=== PATIENT | male | born 1950 ===

== ENCOUNTER 2019-08-24 08:18 | Outpatient (CLI) | payer BC ==
--- NOTE | 2019-08-24 09:21 | MRI ---
EXAM: MRI Lumbar Spine WO Con PROVIDED CLINICAL HISTORY: Lumbar radiculopathy COMPARISON: None FINDINGS: 5 lumbar vertebral bodies are assumed. Lumbar alignment appears normal. Vertebral body heights appear preserved. No focal concerning regional marrow signal abnormality is evident. The conus medullaris is normal in signal and terminates at an appropriate level. T2 hyperintense focus involving the super ior pole of the right kidney statistically relates to cyst but is incompletely characterized. 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 At L1-2, there is bilateral facet arthritis without significant central canal or foraminal narrowing apparent. At L2-3, there is no significant central canal or foraminal narrowing apparent. At L3-4, there is a broad-based disc bulge and bilateral facet arthritis. There is an eccentric appea sami to the disc bulge in the right foraminal region with mild foraminal and post foraminal narrowing on this basis. No significant central canal or left foraminal narrowing apparent. At L4-5, there is a broad-based disc bulge with a superimposed central and subarticular left sided di sc herniation. There is severe central canal stenosis. There is no significant foraminal narrowing. At L5-S1, there is bilateral facet arthritis and a broad-based disc bulge without significant central canal or foraminal narrowing apparent. IMPRESSION: Disc herniation at L4-5 producing severe central canal stenosis. Additional degenerative change as ab ove.
== END 2019-08-24 08:19 | disposition home or self-care (01) ==
LOC: BICMRI 08:18
PROVIDERS: ATTEND Internal Medicine
DX: M47.26 Other spondylosis with radiculopathy, lumbar region (principal); M54.5 Low back pain; M51.16 Intervertebral disc disorders with radiculopathy, lumbar region; M48.061 Spinal stenosis, lumbar region without neurogenic claudication
CPT/HCPCS: 72148